=== PATIENT | male | born 1990 | race Caucasian/White ===

== ENCOUNTER 2019-09-29 13:04 | Emergency (ER) | payer MEDICAID ==
[~2019-09-29] VITALS: Ht 180.3 cm; Wt 119.3 kg
--- NOTE | 2019-09-29 13:10 | NUR ---
"Pain on left LE x2wks Worse now" PATIENT A/OX4, BREATHING EVEN AND UNLABORED, NOS OB NOTED, NEEDS ATTENDED. KEPT COMFORTABLE.
[2019-09-29] MEDS ORDERED: DEXAMETHASONE SOD PHOSPHATE 4 MG/ML VIAL IM ONE (13:30)
[2019-09-29] MEDS ORDERED: CYCLOBENZAPRINE 10 MG TABLET PO ONE (13:30)
[2019-09-29] MEDS ORDERED: KETOROLAC TROMETHAMINE INJ 60 MG/2 ML VIAL IM ONE ×2 (13:30→13:35)
[2019-09-29] MEDS ORDERED: DEXAMETHASONE SOD PHOSPHATE 10 MG/ML VIAL ONE (13:35)
[2019-09-29] MEDS ORDERED: CYCLOBENZAPRINE 10 MG TABLET ONE (13:35)
[2019-09-29 14:34] VITALS: BP 143/66
--- NOTE | 2019-09-29 14:34 | NUR ---
Patient discharged to home in stable condition. Written and verbal after care instructions given. Patient verbalizes understanding of instruction.
== END 2019-09-29 14:35 | disposition home or self-care (01) ==
LOC: ER 13:08
DX: M54.42 Lumbago with sciatica, left side (principal); G89.29 Other chronic pain; Z60.2 Problems related to living alone
CPT/HCPCS: 96372 ×2; 99283; J1100; J1885

== ENCOUNTER 2020-01-01 11:39 | Emergency (ER) | payer MEDICAID, OTHER ==
[~2020-01-01] VITALS: Ht 182.9 cm; Wt 106.1 kg
--- NOTE | 2020-01-01 11:40 | NUR ---
PT [facility] TO ED BED 04 ACOMPANIED BY PD. PER REPORT, PT WAS FOUND RUNNING IN AND OUT OF TRAFFIC AND WAS BROUGHT TO [facility]. INITIALLY WAS CALM AT THE STATION AND ADMITS TO USING METH AND DRINKING ALCOHOL TODAY. PER EMS PT WAS STILL EXHIBITS AGGRESSIVE BEHAVIOR SO WAS TRANSPORTED TO ED FOR EVAL. PLACED ON 4 PT RESTRAINT FOR SAFETY. AWAITING MD ROMEO.
[2020-01-01] MEDS ORDERED: diphenhydrAMINE HCL 50 MG/ML VIAL ONE (11:41)
[2020-01-01] MEDS ORDERED: HALOPERIDOL LACTATE INJ 5 MG/ML VIAL ONE (11:41)
[2020-01-01] MEDS ORDERED: LORAZEPAM INJ 2 MG/ML VIAL ONE (11:42)
--- NOTE | 2020-01-01 11:43 | NUR ---
DR HAMMONDS AT BEDSIDE FOR EVAL.
[2020-01-01] MEDS ORDERED: LORAZEPAM INJ 2 MG/ML VIAL IM ONE (12:00)
[2020-01-01] MEDS ORDERED: HALOPERIDOL LACTATE INJ 5 MG/ML VIAL IM ONE (12:00)
--- NOTE | 2020-01-01 12:30 | NUR ---
PT NOW SEDATED. PLACED ON MONITOR. STABLE VITALS.
--- NOTE | 2020-01-01 12:32 | NUR ---
REMOVED ALL BELONGINGS AND PLACE BELONGINGS IN LOCKER; PLACED PT IN GOWN AND CONNECTED TO MONITOR.
--- NOTE | 2020-01-01 12:38 | NUR ---
BINDER LOCKSTITCH AT BEDSIDE FOR BLOOD DRAW.
[2020-01-01 12:42] LABS: BASOPHILS % (AUTO) 0.2 % (0.0-2.0); EOSINOPHILS % (AUTO) 0.6 % (0.0-6.0); HEMATOCRIT 40 % (39-51); LYMPHOCYTES # (AUTO) 1.5 /CMM (0.8-4.8); LYMPHOCYTES % (AUTO) 33.6 % (20.0-44.0); MEAN CORPUSCULAR HGB CONC 35 g/dl (31.0-36.0); MEAN CORPUSCULAR VOLUME 87 fL (80-96); MONOCYTES # (AUTO) 0.4 /CMM (0.1-1.30); MONOCYTES % (AUTO) 8.1 % (2.0-12.0); NEUTROPHILS # (AUTO) 2.5 /CMM (1.8-8.9); NEUTROPHILS % (AUTO) 57.5 % (43.0-81.0); PLATELET COUNT (AUTO) 240 /CMM (150-450); RED BLOOD CELL COUNT(AUTO) 4.63 MIL/uL (4.5-6.0); WHITE BLOOD COUNT (AUTO) 4.4 K/uL (4.3-11.0)
[2020-01-01 12:51] LABS: CALCIUM, SERUM 8.8 mg/dL (8.5-10.1); POTASSIUM 3.4 mmol/L (3.5-5.1)
[2020-01-01 12:56] LABS: ALBUMIN 3.8 g/dL (3.4-5.0); BILIRUBIN,DIRECT 0.1 mg/dL (0.0-0.2); BILIRUBIN,TOTAL 0.4 mg/dL (0.2-1.0); TOTAL PROTEIN, SERUM 7.2 g/dL (6.4-8.2)
[2020-01-01 12:57] LABS: SALICYLATE 0.7 mg/dL (2.8-20.0)
--- NOTE | 2020-01-01 16:45 | NUR ---
URINE SAMPLE COLLECTED. SENT TO LAB.
--- NOTE | 2020-01-01 16:50 | NUR ---
PT SLEEPING IN BED. EASILY AROUSABLE. ON MONITOR W/ STABLE VITALS.
[2020-01-01 16:58] LABS: APPEARANCE,URINE Clear (CLEAR); BILIRUBIN,URINE Negative (NEGATIVE); BLOOD, URINE Negative Ery/uL (NEGATIVE); COLOR,URINE Yellow (YELLOW); KETONES,URINE Negative (NEGATIVE); LEUKOCYTE ESTERASE ,URINE Negative (NEGATIVE); NITRITE, URINE Negative (NEGATIVE); PH,URINE 5.5 (5.0-8.0); PROTEIN,URINE Negative (NEGATIVE); UGLUCOSE Negative (NEGATIVE); UROBILINOGEN,URINE 0.2 EU/dL (0.2)
--- NOTE | 2020-01-01 19:15 | NUR ---
REPORT REC'D FROM ORVILLE ZAMARRIPA FOR [facility].
--- NOTE | 2020-01-01 19:15 | NUR ---
PT DENIES SI OR HI. PT IS AA&O X4. PT IS AMBULATORY WITH A STEADY GAIT. VSS. PT IS CALLING A FRIEND TO PICK HIM UP. DR DYE IS AWARE. VSS
--- NOTE | 2020-01-01 20:27 | NUR ---
PT'S IS AT THE BEDSIDE. PT IS WAITING FOR DISCHARGE PAPERS.
[2020-01-01 20:47] VITALS: BP 121/62
--- NOTE | 2020-01-01 20:48 | NUR ---
Patient discharged to home in stable condition. Written and verbal after care instructions given. Patient verbalizes understanding of instruction. PT AMBULATED OUT WITH A STEADY GAIT. VSS. NAD NOTED. PT'S IS DRIVING PT HOME.
== END 2020-01-01 20:48 | disposition home or self-care (01) ==
LOC: ER 11:41
DX: F28 Other psychotic disorder not due to a substance or known physiological condition (principal); R45.1 Restlessness and agitation; Z60.2 Problems related to living alone
CPT/HCPCS: 36415; 80048; 80076; 80305; 80307; 80329; 81001; 85025; 96372 ×2; 99285; G0480; J1630; J2060; 81000-TC; J1200

== ENCOUNTER 2020-01-11 08:11 | Emergency (ER) | payer SELFPAY ==
[~2020-01-11] VITALS: Ht 182.9 cm; Wt 127.0 kg
[2020-01-11 08:20] VITALS: BP 129/78
--- NOTE | 2020-01-11 08:38 | NUR ---
SEEN AND EXAMINED BY .
[2020-01-11] MEDS ORDERED: KETOROLAC TROMETHAMINE 15 MG/ML VIAL ONE (08:43)
--- NOTE | 2020-01-11 08:44 | NUR ---
Patient discharged to home in stable condition. Written and verbal after care instructions given. Patient verbalizes understanding of instruction.
[2020-01-11] MEDS ORDERED: KETOROLAC TROMETHAMINE INJ 30 MG/ML VIAL IM ONE (09:00)
== END 2020-01-11 08:47 | disposition home or self-care (01) ==
LOC: ER 08:11
DX: J02.9 Acute pharyngitis, unspecified (principal); Z60.2 Problems related to living alone
CPT/HCPCS: 96372; 99283; J1885